=== PATIENT | female | born 1995 | race Two or more races ===

== ENCOUNTER 2025-06-20 22:45 | Emergency (ER) | payer OTHER ==
[~2025-06-20] VITALS: Ht 154.9 cm; Wt 64.4 kg
[2025-06-20] MEDS ORDERED: PRENATAL + DHA1 EAC1 (23:25)
[2025-06-21] MEDS ORDERED: 0.9 % SODIUM CHLORIDE 500 ML IV ONE (00:30)
[2025-06-21] MEDS ORDERED: FAMOtidine 10 MG/ML (4ML VIAL) IV ONE (00:30)
[2025-06-21] MEDS ORDERED: ACETAMINOPHEN 500 MG GEL..CAP PO ONE ×2 (00:30→00:32)
[2025-06-21] MEDS ORDERED: ONDANSETRON HCL 2 MG/ML VIAL IV ONE (00:30)
[2025-06-21] MEDS ORDERED: ONDANSETRON HCL 2 MG/ML VIAL ONE (00:31)
[2025-06-21] MEDS ORDERED: FAMOTIDINE/PF 20 MG/2 ML VIAL ONE (00:32)
[2025-06-21 01:13] LABS: BASO % 0.3 % (0.1-1.2); EOS # 0.05 (0.04-0.54); EOS % 0.4 % (0.7-7.0); LYMPH # 1.10 (1.18-3.74); LYMPH % 9.6 % (19.3-53.1); MEAN PLATELET VOLUME 10.50 fl (9.4-12.4); MONO # 0.88 (0.24-0.82); MONO % 7.7 % (4.7-12.5); NEUT # 9.17 (1.56-6.13); NEUT % 79.9 % (34.0-71.1); RED CELL DISTRIBUTION WIDTH 11.9 % (11.6-14.4)
[2025-06-21 01:34] LABS: ALT/SGPT 31.0 U/L (12-78); AST/SGOT 25.0 U/L (15-37); BILIRUBIN TOTAL 0.32 mg/dL (0.3-1.2); BUN CREA RATIO 19.0 (7.0-25.0); CREATININE SERUM 0.36 mg/dL (0.55-1.02); GFR 214.63; GLOBULINA 3.7 G/DL (2.4-3.5); GLUCOSE FASTING 101.0 mg/dL (65-100); OSMOLALITY SERUM 276.0 MOSM/KG (275-295)
[2025-06-21] MEDS ORDERED: PEPCID AC20 MG PO (02:37)
== END 2025-06-21 05:25 | disposition home or self-care (01) ==
LOC: ER 22:46
PROVIDERS: Preventive Medicine Public Health & General Preventive Medicine
DX: Z34.90 Encounter for supervision of normal pregnancy, unspecified, unspecified trimester (principal); Z3A.34 34 weeks gestation of pregnancy; K21.9 Gastro-esophageal reflux disease without esophagitis; R07.89 Other chest pain

== ENCOUNTER 2025-06-21 04:57 | Outpatient (CLI) | payer OTHER ==
[2025-06-21 04:45] VITALS: BP 101/66
[~2025-06-21 04:57] MED LIST: PEPCID AC20 MG PO; PRENATAL + DHA1 EAC1
[2025-06-21] MEDS ORDERED: RINGERS SOLUTION,LACTATED 1,000 ML IV SCH (05:15)
[2025-06-21 06:27] VITALS: BP 91/53; O2SAT 99
[2025-06-21 08:52] VITALS: BP 91/53
== END 2025-06-21 09:07 | disposition home or self-care (01) ==
LOC: OBS/DEL 04:57
PROVIDERS: ATTEND Obstetrics & Gynecology
DX: O26.893 Other specified pregnancy related conditions, third trimester (principal); R07.89 Other chest pain; K21.9 Gastro-esophageal reflux disease without esophagitis; O24.419 Gestational diabetes mellitus in pregnancy, unspecified control; Z3A.34 34 weeks gestation of pregnancy

== ENCOUNTER 2025-07-28 17:44 | Inpatient (IN) | payer OTHER ==
[~2025-07-28] VITALS: Ht 154.9 cm; Wt 68.9 kg
[2025-07-28 17:59] VITALS: BP 118/73
[2025-07-28] MEDS ORDERED: RINGERS SOLUTION,LACTATED 1,000 ML IV SCH (18:45)
[2025-07-28] MEDS ORDERED: VALACYCLOVIR500 MG PO (18:47)
[2025-07-28 19:09] LABS: URINE APPEARANCE Clear; URINE BILIRRUBIN Negative (NEGATIVE); URINE BLOOD Negative; URINE COLOR Yellow; URINE GLUCOSE Negative (NEGATIVE); URINE KETONE Negative (NEGATIVE); URINE LEUKOCYTE Negative; URINE NITRATE Negative; URINE PROTEIN Negative (NEGATIVE); URINE UROBILINOGEN 1.0 E.U./dl
[2025-07-28 19:10] LABS: BASO % 0.3 % (0.1-1.2); EOS # 0.08 (0.04-0.54); EOS % 0.8 % (0.7-7.0); LYMPH # 2.12 (1.18-3.74); LYMPH % 20.5 % (19.3-53.1); MEAN PLATELET VOLUME 10.90 fl (9.4-12.4); MONO # 0.87 (0.24-0.82); MONO % 8.4 % (4.7-12.5); NEUT # 7.16 (1.56-6.13); NEUT % 69.3 % (34.0-71.1); RED CELL DISTRIBUTION WIDTH 11.9 % (11.6-14.4)
[2025-07-28 19:11] LABS: URINE BACTERIA 552.0 uL (0.0-1933); URINE CAST 0.00 uL (0.0-1.40); URINE EPITHELIAL CELLS 4.3 uL (0.0-38.8); URINE RBC 1.7 uL (0.0-20.8); URINE WBC 7.2 uL (0.0-23.2)
[2025-07-28 19:38] LABS: INR < 0.93
[2025-07-28 19:44] LABS: ALT/SGPT 25.0 U/L (12-78); AST/SGOT 20.0 U/L (15-37); BILIRUBIN TOTAL 0.36 mg/dL (0.3-1.2); BUN CREA RATIO 21.0 (7.0-25.0); CREATININE SERUM 0.42 mg/dL (0.55-1.02); GFR 179.65; GLOBULINA 3.4 G/DL (2.4-3.5); GLUCOSE FASTING 87.0 mg/dL (65-100); OSMOLALITY SERUM 276.0 MOSM/KG (275-295)
[2025-07-28] MEDS ORDERED: MISOPROSTOL 25 MCG/4 ML GEL.W.APPL ONE (20:12)
[2025-07-28] MEDS ORDERED: MISOPROSTOL 25 MCG/4 ML GEL.W.APPL VAG ONE (20:45)
[2025-07-28 21:25] VITALS: BP 100/60; O2SAT 99
[2025-07-28 23:47] VITALS: BP 118/79
[2025-07-29 04:40] VITALS: BP 119/74
[2025-07-29 07:32] VITALS: BP 136/76
[2025-07-29] MEDS ORDERED: OXYTOCIN 500 ML IV SCH (07:45)
[2025-07-29 11:35] VITALS: BP 127/72
[2025-07-29 13:24] VITALS: BP 119/75
[2025-07-29] MEDS ORDERED: MORPHINE SULFATE 2 MG/ML SYRINGE IV ONE (13:30)
[2025-07-29 15:28] VITALS: BP 135/76
[2025-07-29] MEDS ORDERED: OXYTOCIN 20 UNITS/1000ML RL PIGGYBAG IV ONE (19:06)
[2025-07-29] MEDS ORDERED: ERYTHROMYCIN BASE OPHT 1GM EACH TUBE OP ONE ×2 (19:06→20:17)
[2025-07-29] MEDS ORDERED: LIDOCAINE HCL 1% 10ML VIAL ONE (19:07)
[2025-07-29] MEDS ORDERED: CHLORHEXIDINE GLUCONATE 120 ML BOTTLE TOP ONE (19:07)
[2025-07-29 19:23] VITALS: BP 113/77
[2025-07-29] MEDS ORDERED: CEFOXITIN SODIUM 2,000 MG VIAL IV ONE (20:03)
[2025-07-29] MEDS ORDERED: OXYTOCIN 10 UNITS/ML VIAL ONE (20:17)
[2025-07-29] MEDS ORDERED: CEFOXITIN SODIUM 2,000 MG VIAL IV STA (20:21)
[2025-07-29] MEDS ORDERED: METHYLERGONOVINE MALEATE 0.2 MG/ML AMPUL ONE (21:43)
[2025-07-29] MEDS ORDERED: MORPHINE SULFATE 4 MG/ML CARTRIDGE IV PRN (22:15)
[2025-07-29] MEDS ORDERED: NAPROXEN 500 MG TABLET PO PRN (22:15)
[2025-07-29] MEDS ORDERED: ONDANSETRON HCL 2 MG/ML VIAL IV PRN (22:15)
[2025-07-30] MEDS ORDERED: METHYLERGONOVINE MALEATE 0.2 MG/ML AMPUL IM SCH (01:00)
[2025-07-30] MEDS ORDERED: OXYTOCIN 10 UNITS/ML VIAL ONE (03:04)
[2025-07-30] MEDS ORDERED: ACETAMINOPHEN WITH CODEINE 1 UDTAB TABLET PO PRN (06:00)
[2025-07-30 06:43] LABS: BASO % 0.1 % (0.1-1.2); EOS # 0.00 (0.04-0.54); EOS % 0.0 % (0.7-7.0); LYMPH # 1.53 (1.18-3.74); LYMPH % 7.4 % (19.3-53.1); MEAN PLATELET VOLUME 10.80 fl (9.4-12.4); MONO # 1.53 (0.24-0.82); MONO % 7.4 % (4.7-12.5); NEUT # 17.35 (1.56-6.13); NEUT % 84.5 % (34.0-71.1); RED CELL DISTRIBUTION WIDTH 11.8 % (11.6-14.4)
[2025-07-30] MEDS ORDERED: DOCUSATE SODIUM 100MG CAP PO SCH (09:00)
[2025-07-30] MEDS ORDERED: SIMETHICONE 125 MG CAPSULE PO SCH (09:00)
[2025-07-30] MEDS ORDERED: METHYLERGONOVINE MALEATE 0.2 MG/ML AMPUL ONE (09:20)
[2025-07-30] MEDS ORDERED: SIMETHICONE 125 MG CAPSULE PO ONE (09:28)
[2025-07-30 17:28] VITALS: BP 112/71
[2025-07-31 00:07] VITALS: BP 114/73
[2025-07-31 09:07] VITALS: BP 98/60
[2025-07-31 17:00] VITALS: BP 121/79
[2025-08-01] VITALS: BP 115/67
[2025-08-01 09:03] VITALS: BP 106/67
[2025-08-01] MEDS ORDERED: NAPR500T14 PO (11:33)
[2025-08-01] MEDS ORDERED: Tylenol #3 PO (11:33)
== END 2025-08-01 14:28 | disposition home or self-care (01) | DRG 788 ==
LOC: LDR 17:44 → O/R 07-30 07:22 → OB/GYN 07-30 10:09
PROVIDERS: ADMIT Obstetrics & Gynecology; ATTEND Obstetrics & Gynecology
PROC: 4A1HXCZ Monitoring of Products of Conception, Cardiac Rate, External Approach (ICD-10-PCS; 2025-07-28)
PROC: 3E0P7VZ Introduction of Hormone into Female Reproductive, Via Natural or Artificial Opening (ICD-10-PCS; 2025-07-28)
PROC: 3E033VJ Introduction of Other Hormone into Peripheral Vein, Percutaneous Approach (ICD-10-PCS; 2025-07-29)
PROC: 10D00Z1 Extraction of Products of Conception, Low, Open Approach (ICD-10-PCS; principal; 2025-07-29 23:00)
DX: O82 Encounter for cesarean delivery without indication (principal); O61.0 Failed medical induction of labor; O62.1 Secondary uterine inertia; Z3A.39 39 weeks gestation of pregnancy; Z37.0 Single live birth